=== PATIENT | male | born 1985 | race Two or more races ===

== ENCOUNTER 2017-07-23 16:37 | Emergency (ER) | payer SELFPAY ==
[~2017-07-23] VITALS: Ht 167.6 cm; Wt 68.0 kg
[2017-07-23 17:07] VITALS: BP 130/91
== END 2017-07-23 17:37 | disposition left against medical advice (07) ==
LOC: ER 16:37 → EDBD 16:37 → ER 17:37
DX: R10.9 Unspecified abdominal pain (principal); Z53.21 Procedure and treatment not carried out due to patient leaving prior to being seen by health care provider